=== PATIENT | female | born 1980 | race Two or more races ===

== ENCOUNTER 2017-11-10 11:14 | Emergency (ER) | payer OTHER ==
[~2017-11-10] VITALS: Ht 167.6 cm; Wt 100.0 kg
[2017-11-10] MEDS ORDERED: KETOROLAC 30 MG/1 ML IM ONE (12:00)
[2017-11-10 12:17] LABS: BASOPHILS # (AUTO) 0.02 x10^3/uL (0-0.1); BASOPHILS % (AUTO) 0 % (0-1); EOSINOPHILS # (AUTO) 0.15 x10^3/uL (0-0.4); EOSINOPHILS % (AUTO) 2 % (1-7); LYMPHOCYTES # (AUTO) 3.02 x10^3/uL (1-3.4); LYMPHOCYTES % (AUTO) 32 % (22-44); MD NO; MEAN CORPUSCULAR HEMOGLOBIN 28.5 pg (27.0-34.8); MEAN CORPUSCULAR HGB CONC 33.4 g/dL (32.4-35.8); MEAN CORPUSCULAR VOLUME 85.3 fL (80-100); MEAN PLATELET VOLUME 8.8 fL (7.4-10.4); MONOCYTES # (AUTO) 0.38 x10^3/uL (0.2-0.8); MONOCYTES % (AUTO) 4 % (2-9); NEUTROPHILS # (AUTO) 5.76 x10^3/uL (1.8-6.8); NEUTROPHILS % (AUTO) 62 % (42-75); PLATELET COUNT 256 x10^3/uL (130-400); RED BLOOD COUNT 4.38 x10^6/uL (3.82-5.3); RED CELL DISTRIBUTION WIDTH 13.9 % (9.6-15.2)
[2017-11-10 12:28] LABS: ALBUMIN 3.8 g/dL (3.4-5.0); ANION GAP 5 mmol/L (5-15); CALCIUM 8.7 mg/dL (8.5-10.1); CHLORIDE 111 mmol/L (98-107); CREATININE 0.72 mg/dL (0.55-1.02)
[2017-11-10] MEDS ORDERED: KETOROLAC 30 MG/1 ML ONE (12:34)
[2017-11-10 14:32] VITALS: BP 131/82
== END 2017-11-10 14:35 | disposition home or self-care (01) ==
LOC: ED 13:36
DX: S40.011A Contusion of right shoulder, initial encounter (principal); S90.02XA Contusion of left ankle, initial encounter; W01.0XXA Fall on same level from slipping, tripping and stumbling without subsequent striking against object, initial encounter; Y93.01 Activity, walking, marching and hiking; Y92.89 Other specified places as the place of occurrence of the external cause; Y99.8 Other external cause status
CPT/HCPCS: 36415; 73030; 73590; 73610; 80048; 82040; 84703; 85025; 93005; 96372; 99285; J1885